=== PATIENT | female | born 1985 | race Hispanic/Latino ===

== ENCOUNTER 2018-07-15 19:47 | Emergency (ER) | payer OTHER ==
[~2018-07-15] VITALS: Ht 154.9 cm; Wt 114.3 kg
--- OUTSIDE RECORDS SUMMARY | 2018-07-15 19:50 | XMS REPORT | Clinical Summary ---
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 Disp. Refills Start End Date Status Date TAYTULLA 1 mg-20 mcg Take 1 capsule by mouth 0 06/27/20 Active (24)/75 mg (4) capsule nightly. 17 metFORMIN (GLUCOPHAGE) Take 1,000 mg by mouth 2 Active 1,000 mg tablet (two) times a day with meals. 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 07/14/2017 Family History Medical History Relation Name Comments Breast cancer Neg Hx Cervical cancer Neg Hx Colon cancer Neg Hx Ovarian cancer Neg Hx Thyroid cancer Neg Hx Uterine cancer Neg Hx Social History Tobacco Use Types Packs/Day Years Used Date Never Smoker Smokeless Tobacco: Never Used Alcohol Use Drinks/Week oz/Week Comments Yes Sex Assigned at Date Recorded Not on file Last Filed Vital Signs Vital Sign Reading Time Taken Blood Pressure 143/77 09/09/2017 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 Pulse 75 09/09/2017 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 Temperature - - Respiratory Rate - - Oxygen Saturation - - Inhaled Oxygen - - Concentration Weight 118 kg (261 lb) 09/09/2017 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
[2018-07-15] MEDS ORDERED: TETANUS/DIPHTHERIA TOX ADULT 0.5 ML SYR IM ONE (20:15)
[2018-07-15] MEDS ORDERED: LIDOCAINE/PRILOCAINE 2.5-2.5% KIT TOP ONE (20:15)
[2018-07-15] MEDS ORDERED: BACITRACIN ZINC 0.9GM TP ONE (20:17)
[2018-07-16] MEDS ORDERED: BACITRACIN ZINC 15 GM OINT TOP SCH (09:00)
[2018-07-28] MEDS ORDERED: [UNRECOGNIZED DRUG - OTHER] PO (11:27)
[2018-07-28] MEDS ORDERED: METFORMIN HCL1000 MG PO (11:27)
== END 2018-07-15 20:32 | disposition home or self-care (01) ==
LOC: ER 19:47
DX: S00.81XA Abrasion of other part of head, initial encounter (principal); Y04.0XXA Assault by unarmed brawl or fight, initial encounter; Y93.89 Activity, other specified; Y92.89 Other specified places as the place of occurrence of the external cause; Z23 Encounter for immunization
CPT/HCPCS: 90471; 90714; 99282

== ENCOUNTER → 2018-07-29 | Day surgery (SDC) | payer OTHER ==
[~2018-07-29] MED LIST: FENTANYL CITRATE/PF 100MCG/2 ML INJ ONE; KETAMINE HCL INJ 50 MG/ML 10 ML VIAL ONE; METFORMIN HCL1000 MG PO; MIDAZOLAM HCL 2 MG/2 ML VIAL ONE; PROPOFOL IV EMULSION 10 MG/ML 50 ML VIAL ONE; [UNRECOGNIZED DRUG - OTHER] PO
--- OUTSIDE RECORDS SUMMARY | 2018-07-29 05:36 | XMS REPORT | Clinical Summary ---
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 Active metFORMIN (GLUCOPHAGE) Take 1,000 mg 0 1,000 mg tablet by mouth 2 (two) times a day with meals. Active Problems Not on file Encounters Care Team Description Date Type Specialty Luis A Francis MD HPV in female 09/09/2017 Office Visit Gynecologic Oncology after 07/28/2017 Family History Medical History Relation Name Comments Breast cancer Neg Hx Cervical cancer Neg Hx Colon cancer Neg Hx Ovarian cancer Neg Hx Thyroid cancer Neg Hx Uterine cancer Neg Hx Social History Date Tobacco Use Types Packs/Day Years Used Never Smoker Smokeless Tobacco: Never Used Alcohol Use Drinks/Week oz/Week Comments Yes Sex Assigned at Date Recorded Not on file Industry Job Start Date Occupation Not on file Not on file Not on file Travel End Travel History Travel Start No recent travel history available. 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 Height 156.2 cm (5' 1.5") 09/09/2017 10:19 AM HOGSHEAD HEAD M[employer]ER Body Mass Index 48.52 Plan of Treatment Health Maintenance Due Date Last Done Comments MMR VACCINES (1 of - 1987 Standard series) VARICELLA VACCINES (1 of 1999 2 - 2-dose adolescent series) CERVICAL CANCER SCREENING 2007 INFLUENZA VACCINE 04/14/2018 HEPATITIS B VACCINES Aged Out No longer eligible based on patient's age to complete this topic IPV VACCINES Aged Out No longer eligible based on patient's age to complete this topic MENINGOCOCCAL VACCINE Aged Out No longer eligible based on patient's age to complete this topic Results Not on fileafter 07/28/2017 Insurance Payer Benefit Subscriber ID Type Phone Address Plan / Group [facility] xxxxxxxxx HMO/PPO THCARE CHOICE/CHO ICE + ([place]) [place] [address] Advance Directives Patient has advance care planning documents on file. For more information, phil muñiz contact: Tomy Sanz [id number] [place] [address]
[2018-07-29 08:05] VITALS: BP 128/87
== END | disposition home or self-care (01) ==
LOC: OR 05:34
PROVIDERS: ATTEND Internal Medicine Gastroenterology
DX: K52.9 Noninfective gastroenteritis and colitis, unspecified (principal); K29.70 Gastritis, unspecified, without bleeding; K21.0 Gastro-esophageal reflux disease with esophagitis; K64.8 Other hemorrhoids; Z71.3 Dietary counseling and surveillance; E66.01 Morbid (severe) obesity due to excess calories; E11.9 Type 2 diabetes mellitus without complications; M19.90 Unspecified osteoarthritis, unspecified site; R42 Dizziness and giddiness; R06.83 Snoring; Z88.1 Allergy status to other antibiotic agents; Z79.84 Long term (current) use of oral hypoglycemic drugs; Z68.42 Body mass index [BMI] 45.0-49.9, adult; Z90.49 Acquired absence of other specified parts of digestive tract; Z80.0 Family history of malignant neoplasm of digestive organs
CPT/HCPCS: 36415; 43239; 45380; 81025; 82948; J2250; 45378

== ENCOUNTER 2021-02-12 21:09 | Emergency (ER) | payer OTHER ==
[~2021-02-12] VITALS: Ht 157.5 cm; Wt 124.7 kg
[~2021-02-12 21:09] MED LIST changes: -FENTANYL CITRATE/PF 100MCG/2 ML INJ ONE; -KETAMINE HCL INJ 50 MG/ML 10 ML VIAL ONE; -MIDAZOLAM HCL 2 MG/2 ML VIAL ONE; -PROPOFOL IV EMULSION 10 MG/ML 50 ML VIAL ONE
[2021-02-12] MEDS ORDERED: ONDANSETRON HCL INJ 2MG/ML 2ML 2 MG/ML VIAL IV STA (21:48)
[2021-02-12 21:53] LABS: BASOPHILS % 0.4 % (0.0-1.0); EOSINOPHILS # (AUTO) 0.2 (0.0-0.4); EOSINOPHILS % 1.9 % (0.0-6.0); HEMATOCRIT 38.2 % (34.2-44.1); HEMOGLOBIN 12.4 g/dL (12.0-16.0); LYMPHOCYTES # (AUTO) 2.2 (1.0-3.2); LYMPHOCYTES % 21.8 % (18.0-39.1); MEAN CORPUSCULAR HEMOGLOBIN 26.3 pg (28-32); MEAN CORPUSCULAR HGB CONC 32.5 g/dL (31-35); MEAN CORPUSCULAR VOLUME 81.1 fL (81-99); MONOCYTES # (AUTO) 0.6 (0.2-0.8); MONOCYTES % 6.1 % (4.4-11.3); NEUTROPHILS # (AUTO) 6.8 (2.1-6.9); NEUTROPHILS % 69.2 % (38.7-80.0); PLATELET COUNT 423 x10e3/uL (140-360); RED BLOOD COUNT 4.71 x10e6/uL (3.6-5.1); RED CELL DISTRIBUTION WIDTH 13.8 % (11.7-14.4)
[2021-02-12] MEDS ORDERED: ASPIRIN 81 MG CHEW TAB PO ONE (22:00)
[2021-02-12 22:05] LABS: ANION GAP 14.3 mmol/L (8-16); BLOOD UREA NITROGEN 9 mg/dL (7-26); BUN/CREATININE RATIO 11 (6-25); CALCIUM 8.7 mg/dL (8.4-10.2); CARBON DIOXIDE 25 mmol/L (22-29); CHLORIDE 101 mmol/L (98-107); CREATINE KINASE 50 IU/L (29-168); CREATININE, SERUM 0.79 mg/dL (0.57-1.11); EST GLOMERULAR FILTRATION RATE > 60 ML/MIN (60-); GLUCOSE 226 mg/dL (74-118); POTASSIUM 3.3 mmol/L (3.5-5.1); SODIUM 137 mmol/L (136-145)
[2021-02-12 22:16] LABS: CREATINE KINASE MB < 1.00 ng/mL (0-4.3)
[2021-02-12] MEDS ORDERED: KETOROLAC TROMETHAMINE 30 MG/ML VIAL IV STA (23:12)
[2021-02-12] MEDS ORDERED: ACETAMIN/BUTALBITAL/CAFFEINE TAB PO ONE (23:15)
[2021-02-12] MEDS ORDERED: PROMETHAZINE HCL (IM) 25 MG/ML VIAL IM ONE (23:15)
== END 2021-02-13 01:21 | disposition home or self-care (01) ==
LOC: ER 21:19
DX: G43.909 Migraine, unspecified, not intractable, without status migrainosus (principal); E11.65 Type 2 diabetes mellitus with hyperglycemia; R94.31 Abnormal electrocardiogram [ECG] [EKG]
CPT/HCPCS: 36415; 70450; 80048; 82550; 82553; 84484; 84702; 85025; 93005; 99284; J1885; J2405; J2550

== ENCOUNTER 2024-04-01 15:11 | Emergency (ER) | payer OTHER ==
[~2024-04-01] VITALS: Ht 154.9 cm; Wt 104.0 kg
[2024-04-01] MEDS ORDERED: CEFUROXIME500 MG PO (16:04)
[2024-04-01] MEDS ORDERED: FLUCONAZOLE150 MG PO (16:16)
[2024-04-01] MEDS: CEFTRIAXONE 1 GM VIAL IM ONE (16:18)
[2024-04-01] MEDS ORDERED: VITAMIN D325 MCG (16:25)
[2024-04-01] MEDS ORDERED: L-LYSINE500 M1 (16:25)
[2024-04-01] MEDS ORDERED: MOUNJARO7.5 MG/0.5 (16:25)
[2024-04-01] MEDS ORDERED: LOSARTAN POTASS25 MG PO (16:25)
[2024-04-01] MEDS ORDERED: MAGNESIUM OXID400 MG PO (16:25)
[2024-04-01] MEDS ORDERED: POTASSIUM CHLO10 ME1 PO (16:25)
[2024-04-01] MEDS ORDERED: MULTIVITAMIN1 EACH (16:25)
[2024-04-01] MEDS ORDERED: JARDIANCE10 MG (16:25)
[2024-04-01] MEDS ORDERED: VITAMIN C1000 MG PO (16:25)
[2024-04-01] MEDS ORDERED: MECLIZINE HCL12.5 MG PO (16:25)
[2024-04-01 16:30] VITALS: PULSE 74; RESP 16; TEMP 98.2; O2SAT 98
== END 2024-04-01 16:30 | disposition home or self-care (01) ==
LOC: FSED 15:14
DX: R30.0 Dysuria (principal); N39.0 Urinary tract infection, site not specified; I10 Essential (primary) hypertension; E11.9 Type 2 diabetes mellitus without complications; E66.01 Morbid (severe) obesity due to excess calories; Z68.41 Body mass index [BMI] 40.0-44.9, adult
CPT/HCPCS: 81003; 81025; 96372; 99283; J0696